=== PATIENT | male | born 1960 | race Caucasian/White ===

== ENCOUNTER → 2016-11-23 | Outpatient (CLI) | payer OTHER ==
[~2016-11-23] MED LIST: DICL75TA PO
--- NOTE | 2016-11-23 11:29 | RADRPT ---
EXAM DATE/TIME: 11/23/2016 10:39 [place] COMPARISON: No previous studies available for comparison. INDICATIONS : Evaluate for pneumothorax, pneumonia and communicable disease Pre arthroscopic knee surgery MEDICAL HISTORY : None. SURGICAL HISTORY : None. ENCOUNTER: Initial ACUITY: 1 day PAIN SCORE: 0/10 LOCATION: Bilateral chest FINDINGS: PA and lateral views of the chest demonstrate the lungs to be symmetrically aerated without evidence of mass, infiltrate or effusion. The cardiomediastinal contours are unremarkable. Osseous structure s are intact. CONCLUSION: No acute disease. Adarsh Felix MD on November 23, 2016 at 11:27 Board Certified Radiologist. This report was verified electronically.
[2016-11-23 11:57] LABS: BLOOD, URINE NEG (NEG); COMMENT (UR) CULT NOT INDICATED; CULTURE IF INDICATED CULT NOT INDICATED; GLUCOSE,URINE NEG (NEG); KETONE, URINE NEG (NEG); MUCUS URINE FEW /lpf (OCC); NITRITE,URINE NEG (NEG); PH, URINE 6.5 (5.0-8.5); URINE COLOR YELLOW (YELLW/STRAW)
[2016-11-23 11:59] LABS: PROTHROMBIN TIME - PATIENT 10.7 SEC (9.8-11.6)
[2016-11-23 12:13] LABS: POTASSIUM 4.7 MEQ/L (3.5-5.1)
--- NOTE | 2016-11-24 19:33 | EKG ---
Date Performed: 11/23/2016 Time Performed: 10:10:59 PTAGE: 56 years EKG: Sinus rhythm WITH SINUS ARRHYTHMIA Compared to prior tracing no significant change NORMAL ECG NO PREVIOUS TRACING DOCTOR: Arnel Bowie Interpretating Date/Time 11/24/2016 19:32:06
== END ==
LOC: CPRE 09:50
PROVIDERS: ATTEND Orthopaedic Surgery
DX: Z01.812 Encounter for preprocedural laboratory examination (principal); Z01.811 Encounter for preprocedural respiratory examination; Z01.810 Encounter for preprocedural cardiovascular examination; S83.242D Other tear of medial meniscus, current injury, left knee, subsequent encounter; X58.XXXD Exposure to other specified factors, subsequent encounter
CPT/HCPCS: 36415; 71020; 80048; 81001; 85610; 93005

== ENCOUNTER → 2016-12-01 | Day surgery (SDC) | payer OTHER ==
[~2016-12-01] VITALS: Ht 172.7 cm; Wt 79.8 kg
[~2016-12-01] MED LIST changes: +ACETAMINOPHEN 1000 MG/100 ML VIAL IV ONE; +ACETAMINOPHEN/HYDROcodone 325 MG/5 MG TAB PO PRN; +CHLORHEXIDINE GLUCONATE 2 % 1 PACK (2 CLOTHS) TOPICAL PRN; +DEXAMETHASONE SOD PHOS 4 MG/ML VIAL ONE; +DO NOT ADM ANY ANTICOAGULANT DRUGS PRN; +FAMOTIDINE 20 MG/2 ML VIAL ONE; +INSULIN HUMAN REGULAR 1,000 UNITS/10 ML VIAL SQ PRN; +KETOROLAC TROMETHAMINE 60 MG/2 ML (IM) VIAL IM ONE; +LACTATED RINGER'S 1000 ML IV PRN; +LIDOCAINE HCL 2% PF SOLN 10 ML VIAL INFIL ONE; +LIDOCAINE HCL 2% PF SOLN 10 ML VIAL ONE; +METOPROLOL TARTRATE 25 MG TAB PO PRN; +MIDAZOLAM HCL 2 MG/2 ML VIAL ONE; +MORPHINE SULFATE 10 MG/ML INJ IM PRN; +ONDANSETRON HCL 4 MG/2 ML VIAL IV PUSH ONE; +ONDANSETRON HCL 4 MG/2 ML VIAL IV PUSH PRN; +POVIDONE IODINE 5% (ANTISEPSIS KIT) 4 APPLICATIONS EACH NARE PRN; +POVIDONE IODINE 7.5% SCRUB 118 ML BOTTLE TOPICAL SCH; +PROPOFOL 200 MG/20 ML AMP IV ONE; +SODIUM CHLORID 0.9% 500 ML IV PRN; +TRIAMCINOLONE ACETONIDE 40 MG/ML VIAL ONE; +ceFAZolin 2 GM PREMIX 50 ML IV SCH; +fentaNYL CITRATE 250 MCG/5 ML AMP ONE
[2016-12-01 06:02] VITALS: BP 133/78; PULSE 77; RESP 20; TEMP 97.9; O2SAT 100
--- NOTE | 2016-12-01 09:07 | MH ---
cc: JERO LANGFORD DATE OF ADMISSION: 12/01/2016 ADMITTING DIAGNOSIS Medial meniscus tear of the left knee, effusion left knee, pain left knee. HISTORY OF PRESENT ILLNESS The patient is a 56-year-old white male who has experienced at least a 3-month history of pain involving his left knee. He had been accustomed to riding a bicycle as a form of exercise activity and within the past few months he began to include walking as an alternative to bicycle riding because of discomfort generalized about his left knee. Soreness and swelling had been appreciated for which he tended to modify his exercise routine and taking aspirin for pain management while alternating between heat and ice application. His initial swelling seemed to improve but his pain persisted for which he elected to undergo office evaluation in September of this year. At that time his x-ray studies were unremarkable for any acute bony abnormality. 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 The patient was diagnosed as having a transient synovitis with effusion of the left knee for which he was prescribed diclofenac 75 mg twice daily. He was followed on an outpatient basis thereafter, initially experiencing some trend of improvement with medication as prescribed. 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 The patient described lingering soreness about his left knee that was interfering with his weightbearing activities for which treatment options were reviewed. The pros and cons of continuing with conservative management versus operative intervention in the form of arthroscopic surgery were outlined. Emphasis was made regarding the fact that the decision to proceed with surgery will be left entirely to the patient's discretion. The patient considered his options in this regard and subsequently contacted the office for further disposition indicating his desire to proceed accordingly and in compliance with his wishes he is currently being admitted in order that the above be accomplished. PAST MEDICAL HISTORY/HOSPITALIZATIONS AND SURGERIES 1. Excision of a skin cancer of the right forehead area. 2. Colonoscopy. The patient denies active medical illnesses. MEDICATIONS Current medications include diclofenac 75 mg twice daily. ALLERGIES He denies any known drug allergies. REVIEW OF SYSTEMS He wears glasses for reading purposes. Denies headache, seizure or syncope. No sinus congestion or epistaxis. Auditory acuity intact. No tinnitus. No bleeding gums or dysphagia. No cough, shortness of breath, upper respiratory infection, pneumonia or tuberculosis. No angina or heart disease. Appetite is good. Bowel movements are regular. No hepatitis, gallbladder disease or ulcers. There is a positive history of hemorrhoids. No urinary tract infection. No kidney stones. No prostate disease. History of a fracture of the toe of the left foot. No psychiatric illness. His remaining review of systems is unremarkable and noncontributory. FAMILY HISTORY The patient is single. He has no children. His family history is significant for heart disease and peripheral vascular disease. SOCIAL HISTORY The patient is employed as a technical support person. He completed a college education. He admits to occasional smoking of cigars, ethanol consumption socially. PHYSICAL EXAMINATION VITAL SIGNS: Height 5 feet 8 inches, weight 174 pounds. GENERAL: An alert, oriented and responsive 56-year-old white male who sits quietly upon the examination table with no obvious distress. HEENT: Pupils are equally round and reactive to light. Extraocular movements full. Sclerae clear. External nares clear. External auditory canals clear. Dental intact. Mucous membranes pink and moist. Pharynx clear. NECK: Supple. Active range of motion without appreciable pain. Carotid pulse palpable bilaterally. Trachea midline. Thyroid without enlargement. LUNGS: Clear to auscultation and percussion. No CVA tenderness. No discomfort throughout the dorsal lumbar spine. HEART: Regular rhythm. No murmur or gallop. ABDOMEN: Abdomen is soft, nontender. Bowel sounds present. RECTAL: Per primary care physician. EXTREMITIES: Left knee, no significant swelling or effusion. There is minimal medial joint line tenderness. Apprehension and compression sign negative. Limited mobility in the 110 degree range of flexion with mild discomfort at the extreme of motion. No sensation of crepitation or instability. No collateral ligamentous laxity. Alison test and drawer sign negative. Pivot shift and Zulema sign minimally positive for medial compartment pain. Distal sensory grossly intact. Independent gait. NEUROLOGIC: Cranial nerves II-XII grossly intact. IMPRESSION Medial meniscus tear left knee, effusion left knee, pain left knee. PLAN Arthroscopic surgery and possible arthrotomy, left knee. The nature of the planned surgical procedure, the potential complications and risks associated, the expectations of surgery and the consent form were thoroughly reviewed with the patient prior to his admission to the hospital. Cheko has indicated his full understanding regarding all of the above and given consent to proceed with treatment as outlined. Medical evaluation and clearance for surgery will be completed by his primary care physician, Dr. Wilfredo Box. MD TAYLOR Thompson/TLL /11:24 AM /9:03 AM
[2016-12-01 09:48] VITALS: BP 115/75; PULSE 72; RESP 18; TEMP 97.6; O2SAT 100
--- NOTE | 2016-12-03 15:03 | MP ---
cc: JERO JONES DATE OF SURGERY: 12/01/2016. PREOPERATIVE DIAGNOSIS: 1. Medial meniscus tear of the left knee. 2. Effusion left knee. 3. Pain left knee. PREOPERATIVE DIAGNOSIS: 1. Medial meniscus tear of the left knee. 2. Effusion left knee. 3. Pain left knee. 4. Chondromalacia, left knee. 5. Synovial plica, left knee. OPERATIVE PROCEDURE PERFORMED: A partial medial meniscectomy of the left knee, chondroplasty medial compartment and resection of synovial plica. SURGEON: Jero Jones MD. ANESTHESIA: General by LMA. DESCRIPTION OF THE PROCEDURE IN DETAIL / FORMAT: Following induction of satisfactory general anesthesia by LMA insertion as completed per the department of anesthesia, examination of the left knee revealed a satisfactory range of motion with no appreciable ligamentous instability. There was a mild fullness about the knee consistent with an intra-articular effusion. The extremity proper was positioned into the surgical clinical reviewer knee parks and prepped with Betadine solution and draped into a sterile field in the routine manner. Prior to initiation of the actual procedure, the standard time-out protocol was completed. All parameters were appropriately addressed and confirmed by operating room personnel. Arthroscopic instrumentation was introduced through a stab wound utilizing cannula with sharp and blunt trocar, the inflow irrigation by way of a medial suprapatellar portal but prior to attaching the inflow apparatus, a significant the effusion was evacuated from the knee. Additional portal sites were completed, both in a medial and lateral parapatellar fashion, the arthroscope being introduced through the lateral portal and a probe through a medial portal. Examination of the suprapatellar pouch revealed reactive synovitis with a prominent synovial plica about the medial aspect of the suprapatellar region. Mild degenerative irregularity of the patellofemoral articulation consistent with localized chondromalacia. Within the medial compartment, a prominent tear involving the body and anterior horn of the medial meniscus with a secondary component posteriorly with associated chondromalacic changes especially involving the femoral condyle. There was some mild attenuation of the anterior cruciate ligament but the structure itself did appear to be intact. Reactive synovitis extended throughout the intercondylar region into the lateral compartment. Examination laterally revealed continuity of articular surfaces as well as no evidence of meniscal tear. Attention was redirected to the medial compartment utilizing a 3.8 aggressive resector. A partial medial meniscectomy was accomplished as well as a generalized chondroplasty of the femoral condyle and the tibial plateau. Limited resection of reactive tissue within the intercondylar region was completed. The shaver was thereafter oriented into the suprapatellar region where the previously identified synovial plica was resected in a subtotal manner. Upon completion of same, the joint space was thoroughly lavaged and suctioned dry and intra-articular Kenalog lidocaine injection was completed. The portal sites were reapproximated with Steri-Strips over which Xeroform gauze and a bulky dry sterile dressing placed. Anesthesia was discontinued. The patient was thus transferred to a hospital stretcher and returned to the recovery room in satisfactory condition having tolerated his operative procedure well. Estimated blood loss was less than 10 mL. MD TAYLOR Thompson/JCCliff /8:39 AM /2:56 PM
== END | disposition home or self-care (01) ==
LOC: HSDC 05:10
PROVIDERS: ATTEND Orthopaedic Surgery
DX: S83.242D Other tear of medial meniscus, current injury, left knee, subsequent encounter (principal); M94.262 Chondromalacia, left knee; M25.462 Effusion, left knee; M25.562 Pain in left knee
CPT/HCPCS: 01400; 29881; J0131; J0690; J1100; J1885; J2250; J2405; J3010; J3301; J7120